=== PATIENT | female | born 1995 | race Asian ===

== ENCOUNTER 2019-10-09 19:13 | Outpatient (CLI) | payer OTHER, SELFPAY ==
--- NOTE | 2019-10-09 20:00 | PC.NURSE ---
Obtained a 2nd ROM plus as pt felt like more fluid leaked out. Outside of labia were wet, upon vaginal exam, vaginal canal does not feel as though there is watery discharge.
[2019-10-09 20:53] LABS: Add Urine Microscopic? YES; Appearance Urine Clear (Clear); Bacteria Urine Trace /hpf; Bilirubin Urine Negative (Negative); Blood Urine 1+ (Negative); Color Urine Yellow (Yellow); Glucose Urine UA Negative (Negative); Ketones Urine 1+ mg/dL (Negative); Leukocyte Esterase Ur 1+ LEU/UL (Negative); Mucus Urine Heavy /lpf; Nitrate Urine Negative (Negative); Protein Urine 1+ mg/dL (Negative); RBC Urine 0-2 /hpf (0-2); Specific Grav Ur 1.036 (1.001-1.035); Squamous Epithelial Cell Urine Moderate /hpf (Few)
[2019-10-09 21:52] VITALS: BP 122/71; PULSE 105
== END 2019-10-09 19:14 | disposition home or self-care (01) ==
PROVIDERS: Advanced Practice Midwife; Visit Provider Obstetrics & Gynecology
DX: O41.8X90 Other specified disorders of amniotic fluid and membranes, unspecified trimester, not applicable or unspecified (principal); Z3A.00 Weeks of gestation of pregnancy not specified
CPT/HCPCS: 59025; 81001; 84112; 87086; 87088

== ENCOUNTER 2019-10-18 12:42 | Inpatient (IN) | payer OTHER, SELFPAY ==
--- NOTE | ~2019-10-18 | US_ITS ---
EXAMINATION: US OB limited w BPP EXAM DATE: 10/18/2019 14:54 INDICATION: Annual decelerations. 3rd trimester. TECHNIQUE: Pelvic obstetrical transabdominal sonogram was performed by a technologist. There are mu ltiple grayscale and Doppler images available for interpretation. FINDINGS: There is a single fetus identified in vertex presentation with a heart rate of 139 beats pe r minute. The placenta is located in the posterior position. There is no sonographic evidence of ret roplacental hemorrhage identified. The amniotic fluid index is 22.0 centimeters, which is normal. BIOPHYSICAL PROFILE (performed by the technologist) breathing (30 sec sustained breathing in 30 minutes): 0 out of 2 movement (3 gross body movements in 30 minutes): 2 out of 2 tone (one episode of xrvyzll-blflnfuyf-npzazlw limb movement): 2 out of 2 Amniotic fluid pocket (2 cm): 2 out of 2 Total score: 6 out of 8 IMPRESSION: 1. Single fetus with heart rate of 139 bpm. 2. Abnormal BPS 6/8. Reviewed, dictated and finalized at location B.
--- NOTE | 2019-10-18 16:15 | PC.NURSE ---
Sulma Dorado CNM called back after reviewing EFM tracing. New orders received to keep pt overnight for continuous monitoring.
[2019-10-18 16:27] VITALS: BP 121/81; PULSE 97
--- NOTE | 2019-10-18 16:53 | PC.NURSE ---
Pt asking if she can eat since she hasn't eaten since this morning. Sulma Dorado CNM called, new orders received to let pt eat.
[2019-10-18 17:00] VITALS: BP 124/80; PULSE 97
--- NOTE | 2019-10-18 18:00 | OBADM ---
This patient, Laurel Puri, admitted to the OB room OB Post 111 for observation. Patient/family oriented to hospital policies and general routines including ID bracelet, bed and alarms, visiting hours, pain management, procedures, bathroom and other care routines, personal items, smoking policy, room service/diet, and visiting hours. Patient/Family are encouraged to report perceived risks to care and to ask questions if they do not understand what they are told or what they should do.
[2019-10-18 18:01] VITALS: BP 99/66; PULSE 96
[2019-10-18 19:00] VITALS: BP 114/70; PULSE 98; TEMP 36.6
[2019-10-18 21:01] VITALS: BP 112/75; PULSE 95
[2019-10-18 22:17] VITALS: BP 114/68; PULSE 92; TEMP 36.5
[2019-10-19] VITALS (144 sets, daily range): BP systolic 90–136; BP diastolic 50–96; PULSE 26–180; RESP 16–18; TEMP 36.2–37.2; O2SAT 87–100; BMI 38.4
--- NOTE | 2019-10-19 07:53 | P.HP_ITS ---
H&P: HPI History of Present Illness Date/Time: 10/19/19 07:53 pt was admitted for observation over night due to decreased movement and variable and late decelerations on NST, BPP at that time was 6/8.Overnight occasional late deceleration, + accelerations and occ contractions Chief complaint: NST Narrative: Laurel Puri is a 24 year old female [facility] Family History Family History (Updated 10/10/19 @ 13:51 by Keron Vieira RN) Grandparent Family history of type 2 diabetes mellitus Mother Anemia Father High cholesterol Social History Social History Smoking status: Current every day smoker Alcohol intake: current Substance use: never Substance use type: marijuana Gender identity (if verbalized by the patient): Female Spiritual care concerns: No Meds Home Medications and Allergies Home Medications Medication Instructions Recorded Confirmed Type PNV cmb#95-ferrous fumarate-FA 1 tablet PO DAILY 10/10/19 10/18/19 History [] Allergies Allergy/AdvReac Type Severity Reaction Status Date / Time Penicillins Allergy Unknown Hives Verified 10/18/19 19:23 Vital Signs Vital Signs - 24 hr 10/18/19 16:27 10/18/19 17:00 10/18/19 18:01 Temperature Pulse Rate 97 97 96 Respiratory Rate Blood Pressure 124/80 99/66 L Blood Pressure [Right Arm] 121/81 10/18/19 19:00 10/18/19 21:01 10/18/19 22:17 Temperature 36.6 C 36.5 C Pulse Rate 98 95 92 Respiratory Rate Blood Pressure 114/70 112/75 114/68 Blood Pressure [Right Arm] 10/19/19 02:00 10/19/19 03:10 10/19/19 04:14 Temperature 36.7 C 36.6 C 36.8 C Pulse Rate 86 Respiratory Rate Blood Pressure 98/60 L Blood Pressure [Right Arm] 10/19/19 06:56 10/19/19 07:00 Temperature 36.8 C Pulse Rate 73 Respiratory Rate 16 Blood Pressure 103/71 Blood Pressure [Right Arm] Exam Const: General: no acute distress GI: GI Palp: Yes Soft to palpation Neuro: General: gait normal Speech: normal speech Extrem: General: normal to inspection Assessment and Plan Assessment and plan (1) Non-reassuring heart tones complicating , antepartum: Code(s): O36.8390 - Maternal care for abnormalities of the heart rate or rhythm, unspecified trimester, not applicable or unspecified Status: Acute Assessment and Plan: plan reviewed with Dr. Beck 1. decreased movement 2. non reassuring heart tracing Plan delivery
[2019-10-19 08:50] LABS: Basophils Percent Auto 0.2 % (0.2-1.2); Eosinophils Percent Auto 0.4 % (0-4.4); Hematocrit 35.2 % (37.0-47.0); Hemoglobin 11.5 g/dL (12.0-15.0); Immature Granulocyte Absolute 0.09 K/mm3 (0.00-0.031); Immature Granulocyte Percent A 0.9 % (0-0.5); Lymphocytes Absolute Auto 1.55 K/mm3 (0.9-3.2); Lymphocytes Percent Auto 15.7 % (18.3-44.2); Mean Corpuscular HGB Conc 32.7 g/dl (32-36); Mean Corpuscular Hemoglobin 27.5 pg (26-34); Mean Corpuscular Volume 84.2 fl (80-100); Mean Platelet Volume 9.2 fl (7.4-10.4); Monocytes Absolute Auto 0.4 K/mm3 (0.1-0.6); Monocytes Percent Auto 3.6 % (2.6-8.5); Neutrophils Absolute Auto 7.8 K/mm3 (1.3-6.7); Neutrophils Percent Auto 79.2 % (45.5-73.1); Platelet Count Result 314 k/mm3 (150-375); Red Blood Count 4.18 M/mm3 (4.2-5.4); Red Cell Distribution Width 13.2 % (11.5-14.5); White Blood Count 9.9 K/mm3 (4.5-10.0)
[2019-10-19] MEDS: OXYTOCIN 30 UNITS/NS 500 ML 30 UNITS/500 ML BAG IV CONT (09:14)
[2019-10-19] MEDS: LACTATED RINGERS 1,000 ML 125 ML IV CONT ×3 (09:14→16:27)
--- NOTE | 2019-10-19 09:14 | LDADM ---
This patient, Laurel Puri, was changed to inpatient status on 10/19/19 at 07:47. Pt was transferred to Labor room 108 ambulatory with personal belongings at 0822. Plans for labor, pain management and were discussed with patient. Patient/family oriented to hospital policies and general routines including ID bracelet, bed and alarms, visiting hours, pain management, procedures, bathroom and other care routines, personal items, smoking policy, room service/diet and guest tray routines, security routines, and visiting hours. Patient/Family are encouraged to report perceived risks to care and to ask questions if they do not understand what they are told or what they should do. See OBIX for further documentation.
--- NOTE | 2019-10-19 10:00 | P.PNAN_ITS ---
Anes - Eval Pre Procedure Procedure: labor epidural Date/Time: 10/19/19 10:00 Preop Diagnosis: pain during labor Pre Op Diagnosis: NST Patient Data Age: 24 Gender: F Height: Weight: 109 kg Last Vital Signs Temp 36.8 C 10/19/19 07:00 Pulse 95 10/19/19 09:30 Resp 16 10/19/19 07:00 BP 117/71 10/19/19 09:30 Allergies Allergy/AdvReac Type Severity Reaction Status Date / Time Penicillins Allergy Unknown Hives Verified 10/18/19 19:23 Home Medications Medication Instructions Recorded Confirmed Type PNV cmb#95-ferrous fumarate-FA 1 tablet PO DAILY 10/10/19 10/18/19 History [] Laboratory Tests 10/19/19 10/19/19 10/19/19 08:44 08:44 08:44 WBC 9.9 K/mm3 K/mm3 (4.5-10.0) RBC 4.18 M/mm3 L M/mm3 (4.2-5.4) Hgb 11.5 g/dL L g/dL (12.0-15.0) Hct 35.2 % L % (37.0-47.0) MCV 84.2 fl fl (80-100) MCH 27.5 pg pg (26-34) MCHC 32.7 g/dl g/dl (32-36) RDW 13.2 % % (11.5-14.5) Plt Count 314 k/mm3 k/mm3 (150-375) MPV 9.2 fl fl (7.4-10.4) Immature Gran % (Auto) 0.9 % H % (0-0.5) Neut % (Auto) 79.2 % H % (45.5-73.1) Lymph % (Auto) 15.7 % L % (18.3-44.2) [place] % (Auto) 3.6 % % (2.6-8.5) Eos % (Auto) 0.4 % % (0-4.4) Baso % (Auto) 0.2 % % (0.2-1.2) Lymph # (Auto) 1.55 K/mm3 K/mm3 (0.9-3.2) [place] # (Auto) 0.4 K/mm3 K/mm3 (0.1-0.6) Eos # (Auto) 0.0 K/mm3 K/mm3 (0-0.3) Baso # (Auto) 0.0 K/mm3 K/mm3 (0.0-0.1) Abs Immat Gran (auto) 0.09 K/mm3 H K/mm3 (0.00-0.031) Absolute Neuts (auto) 7.8 K/mm3 H K/mm3 (1.3-6.7) Absolute Nucleated RBC 0.0 K/mm3 K/mm3 (0.0-0.012) Nucleated RBC % 0.0 % % (0.0-0.2) RPR Pending Blood Type A Positive Antibody Screen Negative Patient hx anesthesia problems: none Family hx anesthesia problems: none [facility] Family History Family History (Updated 10/10/19 @ 13:51 by Keron Vieira RN) Grandparent Family history of type 2 diabetes mellitus Mother Anemia Father High cholesterol Social History Social History Smoking status: Current every day smoker Alcohol intake: current Substance use: never Substance use type: marijuana Gender identity (if verbalized by the patient): Female Spiritual care concerns: No Exam Day of Procedure 10/19/19 10:00
[2019-10-19 11:44] LABS: Barbiturate Screen Urine Negative (Negative); Benzodiazepines Screen Urine Negative (Negative)
[2019-10-19 11:47] LABS: Amphetamine Screen Urine Negative (Negative); Cannabinoid Screen Urine Negative (Negative); Cocaine Screen Urine Negative (Negative); Methadone Screen Urine Negative (Negative); Opiate Screen Urine Negative (Negative); Phencyclidine Screen Urine Negative (Negative)
--- NOTE | 2019-10-19 12:16 | PM.OBPNLAB ---
Pain Control Date/time seen: 10/19/19 12:16 sve /-2 AROM large amount of clear odorless fluid
--- NOTE | 2019-10-19 13:07 | WPDANESEPP ---
Anes - Eval Pre Procedure Procedure: labor epidural Date/Time: 10/19/19 13:07 Surgeon: aSad Beck Preop Diagnosis: Pain During Labor Pre Op Diagnosis: NST Patient Data Age: 24 Gender: F Height: 5 ft 5.75 in Weight: 107.2 kg Last Vital Signs Temp 36.2 C L 10/19/19 11:30 Pulse 99 10/19/19 13:00 Resp 16 10/19/19 07:00 BP 120/90 10/19/19 13:00 Allergies Allergy/AdvReac Type Severity Reaction Status Date / Time Penicillins Allergy Unknown Hives Verified 10/18/19 19:23 Home Medications Medication Instructions Recorded Confirmed Type PNV cmb#95-ferrous fumarate-FA 1 tablet PO DAILY 10/10/19 10/18/19 History [] nitrofurantoin monohyd/m-cryst 100 mg PO BID 10/19/19 10/19/19 History Laboratory Tests 10/19/19 10/19/19 10/19/19 08:44 08:44 08:44 WBC 9.9 K/mm3 K/mm3 (4.5-10.0) RBC 4.18 M/mm3 L M/mm3 (4.2-5.4) Hgb 11.5 g/dL L g/dL (12.0-15.0) Hct 35.2 % L % (37.0-47.0) MCV 84.2 fl fl (80-100) MCH 27.5 pg pg (26-34) MCHC 32.7 g/dl g/dl (32-36) RDW 13.2 % % (11.5-14.5) Plt Count 314 k/mm3 k/mm3 (150-375) MPV 9.2 fl fl (7.4-10.4) Immature Gran % (Auto) 0.9 % H % (0-0.5) Neut % (Auto) 79.2 % H % (45.5-73.1) Lymph % (Auto) 15.7 % L % (18.3-44.2) [place] % (Auto) 3.6 % % (2.6-8.5) Eos % (Auto) 0.4 % % (0-4.4) Baso % (Auto) 0.2 % % (0.2-1.2) Lymph # (Auto) 1.55 K/mm3 K/mm3 (0.9-3.2) [place] # (Auto) 0.4 K/mm3 K/mm3 (0.1-0.6) Eos # (Auto) 0.0 K/mm3 K/mm3 (0-0.3) Baso # (Auto) 0.0 K/mm3 K/mm3 (0.0-0.1) Abs Immat Gran (auto) 0.09 K/mm3 H K/mm3 (0.00-0.031) Absolute Neuts (auto) 7.8 K/mm3 H K/mm3 (1.3-6.7) Absolute Nucleated RBC 0.0 K/mm3 K/mm3 (0.0-0.012) Nucleated RBC % 0.0 % % (0.0-0.2) Urine Opiates Screen Urine Methadone Screen Ur Barbiturates Screen Ur Phencyclidine Scrn Ur Amphetamine Screen U Benzodiazepines Scrn Urine Cocaine Screen U Cannabinoids Screen RPR Pending Blood Type A Positive Antibody Screen Negative 10/19/19 09:57 WBC RBC Hgb Hct MCV MCH MCHC RDW Plt Count MPV Immature Gran % (Auto) Neut % (Auto) Lymph % (Auto) [place] % (Auto) Eos % (Auto) Baso % (Auto) Lymph # (Auto) [place] # (Auto) Eos # (Auto) Baso # (Auto) Abs Immat Gran (auto) Absolute Neuts (auto) Absolute Nucleated RBC Nucleated RBC % Urine Opiates Screen Negative (Negative) Urine Methadone Screen Negative (Negative) Ur Barbiturates Screen Negative (Negative) Ur Phencyclidine Scrn Negative (Negative) Ur Amphetamine Screen Negative (Negative) U Benzodiazepines Scrn Negative (Negative) Urine Cocaine Screen Negative (Negative) U Cannabinoids Screen Negative (Negative) RPR Blood Type Antibody Screen Patient hx anesthesia problems: none Family hx anesthesia problems: none [facility] Past Medical History Medical History Anxiety Depression Family History Family History Grandparent Family history of type 2 diabetes mellitus Mother Anemia Father High cholesterol Social History Social History Years smoked: 6.5 Smoking status: Current every day smoker Tobacco type: e-cigarettes/vaping Second hand tobacco smoke exposure: Yes Alcohol intake: current Substance use: current Substance use type: marijuana G
--- NOTE | 2019-10-19 17:44 | PM.OBPRVD ---
OB - Delivery Note Procedure Delivery date: 10/19/19 Procedure: vaginal delivery events: Labor Induction Intrapartal events: None Induction method: AROM and per pitocin protocol Delivery monitor: external FHT and external uterine Route of delivery: Laceration description: Perineal - 2nd Degree Delivery repair: vicryl Specimen: Yes Estimated blood loss (mL): 275 Anesthesia type: Epidural Disposition: other () Baby Date of : 10/19/19 Time of : 17:30 Weeks of gestation at delivery: 37 gender: Male Weight (pounds): 6 Weight (ounces): 12 presentation: vertex position: Left Occiput Anterior Placenta delivery description: Spontaneous cord vessel description: 3 Vessels, Nuchal Cord, Loose, Reduced and Clamped/Cut score one minute: 8 score five minutes: 9 Narrative: delayed cord clamping, skin to skin mother and baby in stable condition
[2019-10-19] MEDS: OXYTOCIN 30 UNITS/NS 500 ML 30 UNITS/500 ML BAG 125 UNITS IV CONT (18:02)
[2019-10-19] MEDS: BENZOCAINE 20% AER SPR (*SP) 56 GM CAN 1 SPRAY TOPICAL (19:41)
[2019-10-19] MEDS: WITCH HAZEL 40 PADS 1 PAD TOPICAL (19:41)
[2019-10-19] MEDS: IBUPROFEN 600 MG TABLET PO (22:11)
[2019-10-20] MEDS: ACETAMINOPHEN 325 MG TABLET 650 MG PO (02:56)
[2019-10-20] MEDS: IBUPROFEN 600 MG TABLET PO ×2 (04:43→11:09)
[2019-10-20 05:14] LABS: Hematocrit 32.1 % (37.0-47.0); Hemoglobin 10.3 g/dL (12.0-15.0)
--- NOTE | 2019-10-20 07:32 | PM.OBPNVD ---
OB - PN: Subj Subjective Date/time seen: 10/20/19 07:32 Patient comments: no complaints baby status: doing well OB - PN: Obj Data Labs CBC & Chem 7: 10/20/19 04:36 Labs: Laboratory Results - last 24 hr 10/19/19 10/19/19 10/19/19 08:44 08:44 09:57 WBC 9.9 RBC 4.18 L Hgb 11.5 L Hct 35.2 L MCV 84.2 MCH 27.5 MCHC 32.7 RDW 13.2 Plt Count 314 MPV 9.2 Immature Gran % (Auto) 0.9 H Neut % (Auto) 79.2 H Lymph % (Auto) 15.7 L [place] % (Auto) 3.6 Eos % (Auto) 0.4 Baso % (Auto) 0.2 Lymph # (Auto) 1.55 [place] # (Auto) 0.4 Eos # (Auto) 0.0 Baso # (Auto) 0.0 Abs Immat Gran (auto) 0.09 H Absolute Neuts (auto) 7.8 H Absolute Nucleated RBC 0.0 Nucleated RBC % 0.0 Urine Opiates Screen Negative Urine Methadone Screen Negative Ur Barbiturates Screen Negative Ur Phencyclidine Scrn Negative Ur Amphetamine Screen Negative U Benzodiazepines Scrn Negative Urine Cocaine Screen Negative U Cannabinoids Screen Negative Blood Type A Positive Antibody Screen Negative 10/20/19 04:36 WBC RBC Hgb 10.3 L Hct 32.1 L MCV MCH MCHC RDW Plt Count MPV Immature Gran % (Auto) Neut % (Auto) Lymph % (Auto) [place] % (Auto) Eos % (Auto) Baso % (Auto) Lymph # (Auto) [place] # (Auto) Eos # (Auto) Baso # (Auto) Abs Immat Gran (auto) Absolute Neuts (auto) Absolute Nucleated RBC Nucleated RBC % Urine Opiates Screen Urine Methadone Screen Ur Barbiturates Screen Ur Phencyclidine Scrn Ur Amphetamine Screen U Benzodiazepines Scrn Urine Cocaine Screen U Cannabinoids Screen Blood Type Antibody Screen OB - PN A/P Plan day: 1 Plan: discharge home Time Spent With Patient Time: Total time spent is greater than 50% in coordination of care (as documented) at patient's floor/unit and/or counseling patient: Exam Const: General: comfortable Resp: Effort & Inspection: normal respiratory effort Psych: Appearance: grossly normal Affect: normal affect
[2019-10-20 08:15] VITALS: BP 107/71; PULSE 93; RESP 18; TEMP 36.5; O2SAT 98
[2019-10-20] MEDS: DOCUSATE SODIUM 100 MG CAPSULE PO (11:09)
[2019-10-20] MEDS: MULTIVIT/MIN/PREN/FOL AC/IRON TABLET 1 TAB PO (11:09)
--- NOTE | 2019-10-20 11:09 | WPDANLDPN2 ---
Anes-Prog Note L&D Date/Time: 10/20/19 11:09 Comfortable throughout: labor and delivery Neuraxial method: epidural Epidural/Spinal procedure site: clean & non-tender Neuro status: Neuro function grossly intact. Cardiovascular status: normal Respiratory status: normal Airway patency: baseline Mental status: baseline Post-Op hydration status: normal Vital Signs: Last Vital Signs Temp 37.2 C 10/19/19 20:30 Pulse 91 10/19/19 20:30 Resp 18 10/19/19 20:30 BP 99/53 L 10/19/19 20:30 Pulse Ox 98 10/19/19 20:30 I/O: Intake & Output 10/19/19 10/20/19 10/20/19 23:59 07:59 15:59 Intake Total 1500 Output Total 370 Balance 1130 Post-procedural complaints: none Patient feedback: Patient satisfied with anesthetic care.
[2019-10-20] MEDS: LANOLIN (LANSINOH) 7.5 GM CREAM 1 APPLIC TOPICAL (11:10)
[2019-10-22 09:50] LABS: Rapid Plasma Reagin Non-Reactive (NonReactive)
--- NOTE | 2019-10-24 17:43 | PM.OBDSVD ---
DS: Admitting Diagnosis Admitting Diagnosis Admitting Diagnosis: NST OB - DS: Summary OB Procedures : None OB Procedures Intrapartum: Spontaneous Vag Delivery OB Procedures: : None Time Spent with Patient Time attestation: Total time spent providing and/or coordinating discharge services: DS: Data Data Completed and Pending Completed studies during hospitalization: Pending at discharge 10/19/19 17:34 Surgical [PTH] Routine Discharge Plan Discharge Consulting providers: Janae Soto ; [address] Discharging Clinician: Janae Soto Anticipated Discharge Date/Time: 10/20/19 20:00 Patient Disposition: Home, Self-Care Activity: may shower, may drive after 2 weeks, as tolerated and pelvic rest Diet: regular Discharge Instructions: Education: Mom and Baby Guide Given to: Mother Follow-Up: Call your delivering provider's office for an appointment to be seen in: 4 Weeks Mom and baby [facility] for the follow-up appointment. Appointment Date/Time: October 22, 2019 at 8:00 am What to expect at your follow-up visit: Physical Assessment Call [phone] if you are unable to keep your appointment time. BREAST CARE: * Wear a snug supportive bra. * For engorgement discomfort: Breast Feeding: * Apply warm moist washcloths * Express milk as needed to relieve engorgement * Wear loose clothing Bottle Feeding: * May apply ice packs * For sore nipples: * Identify correct latch-on * Apply warm moist washcloths before and after nursing * Air dry nipples after nursing * May apply Lansinoh cream to nipples EPISIOTOMY/PERINEAL CARE: * Until bleeding stops, use your tereza bottle after urinating * Change your pad frequently throughout the day * You may take sitz baths several times a day (fill your bathtub with warm water and soak for 20 minutes.) Do NOT bathe in the water * No tub baths until seen by your physician - You may shower ACTIVITY: * Rest as much as possible. * Do not exercise or lift anything heavier than your baby (such as laundry or other children.) * Avoid stairs or driving as much as possible. * Do not put anything into the vagina. No douching, tampons, or sexual activity until seen by physician. NOTIFY PHYSICIAN IF YOU HAVE ANY QUESTIONS OR IF ANY OF THE FOLLOWING SYMPTOMS OCCUR: * If your episiotomy or incision becomes red, swollen, or more painful than what you have experienced in the hospital. * If your vaginal bleeding becomes foul smelling. * If your vaginal bleeding becomes more heavy than a period or if your bleeding changes from pink to bright red. However, you may pass an occasional walnut-sized clot once or twice for the first week . * If you experience a sharp, shooting pain in you calves. * If you discover a hard, reddened area on your breast or if you experience flu-like symptoms. DIET: * Eat regular, well-balanced meals. * Drink plenty of fluids daily. If , drink to thirst. Stand Alone Forms: General Discharge Information Follow-up/Referrals: Janae Soto CNM [Certified Nurse Pack Changer] - Discharge Medications: Continued PNV cmb#95-ferrous fumarate-FA [] 28 mg iron- 800 mcg Tablet 1 tablet PO DAILY RF: 0 Discontinued nitrofurantoin monohyd/m-cryst 100 mg capsule 100 mg PO BID RF: 0 Date of admission: 10/19/19 07:47 Primary Care Provider: PHYSICIAN,ROLLER SKATE ASSEMBLER Admitting Provider: Saad Beck Discharge Date/Time: 10/20/19 19:17 Attending physician on admission: Saad Beck
== END 2019-10-20 19:17 | disposition home or self-care (01) | DRG 806 ==
LOC: ANHOBPP 10-19 07:56 → ANHLDR 10-19 08:36 → ANHOB2 10-19 20:14
PROVIDERS: Advanced Practice Midwife; Admitting Provider Obstetrics & Gynecology; Visit Provider Obstetrics & Gynecology
DX: O36.8330 Maternal care for abnormalities of the fetal heart rate or rhythm, third trimester, not applicable or unspecified (principal); O99.324 Drug use complicating childbirth; Z37.0 Single live birth; Z3A.37 37 weeks gestation of pregnancy; O36.8130 Decreased fetal movements, third trimester, not applicable or unspecified; O70.1 Second degree perineal laceration during delivery; O69.81X0 Labor and delivery complicated by cord around neck, without compression, not applicable or unspecified; O99.214 Obesity complicating childbirth; E66.9 Obesity, unspecified; O99.02 Anemia complicating childbirth; D64.9 Anemia, unspecified; F12.90 Cannabis use, unspecified, uncomplicated; O99.334 Smoking (tobacco) complicating childbirth; F17.290 Nicotine dependence, other tobacco product, uncomplicated
CPT/HCPCS: 36415; 59025; 76815; 76819; 80307; 85014; 85018; 85025; 86592; 86850; 86900; 86901; 88307; A9270; J2590; J2795; J3010; J7120